=== PATIENT | male | born 1985 | race Hispanic/Latino ===

== ENCOUNTER 2022-01-08 07:33 | Emergency (ER) | payer BC ==
[2022-01-08] MEDS ORDERED: Ketorolac Tromethamine 30 MG/ML VIAL ONE (08:19)
[2022-01-08] MEDS ORDERED: Acetaminophen 500 MG TAB ONE (08:19)
[2022-01-08 09:24] LABS: Troponin I Less than 0.010 ng/mL (< 0.028)
== END 2022-01-08 10:00 | disposition home or self-care (01) ==
LOC: CSHERS 07:33
DX: R07.89 Other chest pain (principal); I45.10 Unspecified right bundle-branch block; M54.9 Dorsalgia, unspecified; E78.5 Hyperlipidemia, unspecified; E78.00 Pure hypercholesterolemia, unspecified; F17.200 Nicotine dependence, unspecified, uncomplicated
CPT/HCPCS: 36415; 71046; 84484; 93005; 96372; J1885